=== PATIENT | male | born 1965 | race Caucasian/White ===

== ENCOUNTER 2019-01-04 00:40 | Observation (INO) | payer MEDICAID, OTHER ==
[2019-01-04 01:17] LABS: CHLORIDE,CL 105 mEq/L (98-106); SODIUM,NA 141 mEq/L (136-145)
--- NOTE | 2019-01-04 01:46 | EDM.PDOC ---
ED HPI GENERAL MEDICAL PROBLEM - General Chief Complaint: Neuro Symptoms/Deficits Stated Complaint: left sided weakness Time Seen by Provider: 01/04/19 01:00 Source of Information: Reports: Patient History Limitations: Reports: No Limitations - History of Present Illness INITIAL COMMENTS - FREE TEXT/NARRATIVE: Patient presents to ER after recurring left arm weakness and numbness, concerned with having a stroke. States was sitting in his chair around 2130 and noted left arm numbness, felt like he couldn't move his arm as much. Took a antonette aspirin and within 30 minutes his symptoms went away. Got up and showered and was feeling better. Started having symptoms again around 2300 and after an hour or so, felt like he should call 911. On presentation to ER, nurses note he had shoulder strength but would not make a fist, not able to hold his arm up. Mild left leg weakness when tested. No speech deficit. No facial numbness or tingling. Blood pressure was good. patient states he had similar symptoms of a stroke 4 years ago in his right arm but never went in to be seen. Denies chest pain, shortness of breath. No recent injury. No neck pain or shoulder pain. Able to ambulate at home. Admits to pain in his elbow and down to his hand. History of seizure disorder, denies having any seizure activity recently. Onset: Today, Sudden Duration: Hour(s): Location: Reports: Upper Extremity, Left Associated Symptoms: Reports: Weakness. Denies: Confusion, Chest Pain, Cough, Fever/Chills, Headaches, Loss of Appetite, Nausea/Vomiting, Seizure, Shortness of Breath Treatments RN ORTHOPAEDICS: Reports: Aspirin - Related Data Allergies Allergy/AdvReac Type Severity Reaction Status Date / Time No Known Allergies Allergy Verified 01/04/19 00:58 Home Meds: Home Meds Aspirin [Antonette Chewable] 81 mg PO DAILY 04/04/13 [History] lamoTRIgine [LaMICtal] 200 mg PO DAILY 04/04/13 [History] lamoTRIgine [Lamictal] 150 mg PO BEDTIME 04/04/13 [History] Past Medical History HEENT History: Reports: None Neurological History: Reports: Concussion, Headaches, Chronic, Head Trauma, Migraines, Seizure Psychiatric History: Reports: Depression, Mood Swings - Past Surgical History HEENT Surgical History: Reports: Adenoidectomy, Tonsillectomy GI Surgical History: Reports: Appendectomy Social & Family History - Tobacco Use Smoking Status *Q: Never Smoker - Caffeine Use Caffeine Use: Reports: Coffee, Energy Drinks, Soda, Tea - Recreational Drug Use Recreational Drug Use: No ED ROS GENERAL - Review of Systems Review Of Systems: See Below Constitutional: Reports: Weakness. Denies: Fever, Chills, Malaise, Fatigue, Decreased Appetite HEENT: Denies: Ear Pain, Sinus Problem, Throat Pain, Vertigo, Vision Change Respiratory: Denies: Shortness of Breath, Cough Cardiovascular: Denies: Chest Pain, Edema, Lightheadedness Endocrine: Reports: Fatigue GI/Abdominal: Denies: Abdominal Pain, Nausea, Vomiting : Reports: No Symptoms Musculoskeletal: Reports: Arm Pain. Denies: Neck Pain, Shoulder Pain, Leg Pain Skin: Reports: No Symptoms Neurological: Reports: Numbness, Tingling, Weakness. Denies: Confusion, Dizziness, Headache, Seizure, Syncope, Trouble Speaking, Change in Speech, Gait Disturbance Psychiatric: Reports: No Symptoms ED EXAM, NEURO - Physical Exam Exam: See Below Exam Limited By: No Limitations General Appearance: Alert, WD/WN, No Apparent Distress Ears: Normal External Exam, Normal TMs Nose: Normal Inspection, Normal Mucosa, No Blood Throat/Mouth: Normal Inspection, Normal Oropharynx Head Exam: Normocephalic Neck: Normal Inspection, Supple, Non-Tender Respiratory/Chest: No Respiratory Distress, Lungs Clear, Normal Breath Sounds Cardiovascular: Regular Rate, Rhythm, No Edema GI/Abdominal: Normal Bowel Sounds, Soft, Non-Tender Neurological: Alert, Normal Mood/Affect, CN II-XII Intact, Oriented x 3, Abnormal Finger to Nose, Babinski (present), Other (leg testing shows mild differences in left being mildly weaker than right but moves leg around in bed.) . No: Abnormal Sensation (Alert and oriented. No facial droop. Cranial nerves intact. BAYLEE. Able to flex and extend left arm but with slow purposeful movements. States unable to make a fist. Unable to do perform Seven , point to point discretion. Has strength in his shoulder/upper arm. Lets arm drop with pronator drift testing but not flaccid. ) Extremities: Normal Inspection, No Pedal Edema Skin Exam: Warm, Dry Course - Vital Signs Last Recorded V/S: Last Vital Signs Temp 96.5 F 01/04/19 02:25 Pulse 60 01/04/19 02:25 Resp 16 01/04/19 02:25 BP 102/65 01/04/19 02:25 Pulse Ox 98 01/04/19 02:25 - Orders/Labs/Meds Orders: Active Orders 24 hr Category Date Time Status Patient Status Manage Transfer [TRANSFER] Routine ADT 01/04/19 02:38 Ordered Head wo Cont [CT] Routine Exams 01/04/19 Taken Resuscitation Status Routine Resus Stat 01/04/19 02:39 Ordered Labs: Laboratory Tests 01/04/19 01/04/19 01/04/19 Range/Units 00:57 00:57 00:57 WBC 5.5 (5.0-10.0) 10^3/uL RBC 4.75 (4.50-6.00) 10^6/uL Hgb 14.7 (14.0-18.0) g/dL Hct 42.5 (40.0-54.0) % MCV 89.5 (82.0-94.0) fL MCH 30.9 (27.0-32.0) pg MCHC 34.6 (33.0-38.0) g/dL RDW Coeff of Karyna 12.2 (11.0-15.0) % Plt Count 189 (150-400) 10^3/uL Neut % (Auto) 50.2 (35-85) % Lymph % (Auto) 33.5 (10-55) % Avery % (Auto) 7.3 (0-16) % Eos % (Auto) 8.6 H (0-5) % Baso % (Auto) 0.4 (0-3) % Neut # (Auto) 2.76 (1.80-7.00) 10^3/uL Lymph # (Auto) 1.84 (1.00-4.80) 10^3/uL Avery # (Auto) 0.40 (0.00-0.80) 10^3/uL Eos # (Auto) 0.47 H (0.00-0.45) 10^3/uL Baso # (Auto) 0.02 10^3/uL PT 10.2 (9.7-12.3) SEC INR 0.99 (0.92-1.18) APTT 26.7 (23.2-32.3) SEC Sodium 141 (136-145) mEq/L Potassium 3.8 (3.5-5.0) mEq/L Chloride 105 (98-106) mEq/L Carbon Dioxide 30 (21-32) mmol/L BUN 17 (7-18) mg/dL Creatinine 1.0 (0.7-1.3) mg/dL Est Cr Clr Drug Dosing 93.08 mL/min Estimated GFR (MDRD) > 60 (>=60) mL/min Glucose 97 (75-99) mg/dL Calcium 9.0 (8.4-10.1) mg/dL Lactate Dehydrogenase 149 (100-190) U/L Creatine Kinase 75 (35-232) U/L Troponin I < 0.017 (0.00-0.06) ng/mL Urine Color (YELLOW) Urine Appearance (CLEAR) Urine pH (4.5-8.0) Ur Specific Adams (1.003-1.020) Urine Protein (NEGATIVE) mg/dL Urine Glucose (UA) (NEGATIVE) mg/dL Urine Ketones (NEGATIVE) mg/dL Urine Occult Blood (NEGATIVE) Urine Nitrite (NEGATIVE) Urine Bilirubin (NEGATIVE) Urine Urobilinogen (0.2-1.0) EU/dL Ur Leukocyte Esterase (NEGATIVE) 01/04/19 Range/Units 00:57 WBC (5.0-10.0) 10^3/uL RBC (4.50-6.00) 10^6/uL Hgb (14.0-18.0) g/dL Hct (40.0-54.0) % MCV (82.0-94.0) fL MCH (27.0-32.0) pg MCHC (33.0-38.0) g/dL RDW Coeff of Karyna (11.0-15.0) % Plt Count (150-400) 10^3/uL Neut % (Auto) (35-85) % Lymph % (Auto) (10-55) % Avery % (Auto) (0-16) % Eos % (Auto) (0-5) % Baso % (Auto) (0-3) % Neut # (Auto) (1.80-7.00) 10^3/uL Lymph # (Auto) (1.00-4.80) 10^3/uL Avery # (Auto) (0.00-0.80) 10^3/uL Eos # (Auto) (0.00-0.45) 10^3/uL Baso # (Auto) 10^3/uL PT (9.7-12.3) SEC INR (0.92-1.18) APTT (23.2-32.3) SEC Sodium (136-145) mEq/L Potassium (3.5-5.0) mEq/L Chloride (98-106) mEq/L Carbon Dioxide (21-32) mmol/L BUN (7-18) mg/dL Creatinine (0.7-1.3) mg/dL Est Cr Clr Drug Dosing mL/min Estimated GFR (MDRD) (>=60) mL/min Glucose (75-99) mg/dL Calcium (8.4-10.1) mg/dL Lactate Dehydrogenase (100-190) U/L Creatine Kinase (35-232) U/L Troponin I (0.00-0.06) ng/mL Urine Color Yellow (YELLOW) Urine Appearance Clear (CLEAR) Urine pH 6.0 (4.5-8.0) Ur Specific Adams 1.020 (1.003-1.020) Urine Protein Negative (NEGATIVE) mg/dL Urine Glucose (UA) Negative (NEGATIVE) mg/dL Urine Ketones Negative (NEGATIVE) mg/dL Urine Occult Blood Negative (NEGATIVE) Urine Nitrite Negative (NEGATIVE) Urine Bilirubin Negative (NEGATIVE) Urine Urobilinogen 0.2 (0.2-1.0) EU/dL Ur Leukocyte Esterase Negative (NEGATIVE) - Re-Assessments/Exams Free Text/Narrative Re-Assessment/Exam: 01/04/19 01:30 Now moves arm freely. Asking to not have IV. good point to point discretion, rapid alternating movements. Able to make a fist. Palmar grasp is good. Labs are all normal. Awaiting results of CT. 01/04/19 0200 contacted [facility] to determine read of head CT. Will call when read 01/04/2019 0215-Head CT report received, negative. contacted [facility] and spoke with physician. Recommend neurological monitoring. Patient informed. Likely proceed with MRI of head tomorrow. Departure - Departure Time of Disposition: 02:43 Disposition: Refer to Observation Condition: Good Clinical Impression: Limb weakness - Discharge Information *PRESCRIPTION DRUG MONITORING PROGRAM REVIEWED*: No *COPY OF PRESCRIPTION DRUG MONITORING REPORT IN PATIENT PAULY: No Forms: ED Department Discharge - Problem List & Annotations (1) Limb weakness SNOMED Code(s): 898290099 Code(s): R29.898 - [facility] SYMPTOMS AND SIGNS INVOLVING THE MUSCULOSKELETAL SYSTEM Status: Acute Priority: High - Problem List Review Problem List Initiated/Reviewed/Updated: Yes - My Orders Last 24 Hours: My Active Orders 01/04/19 Head wo Cont [CT] Routine 01/04/19 02:38 Patient Status Manage Transfer [TRANSFER] Routine 01/04/19 02:39 Resuscitation Status Routine - Assessment/Plan Admission H&P: Please use this note as an admission H&P Last 24 Hours: My Active Orders 01/04/19 Head wo Cont [CT] Routine 01/04/19 02:38 Patient Status Manage Transfer [TRANSFER] Routine 01/04/19 02:39 Resuscitation Status Routine Assessment:: Left arm weakness Plan: Admit to observation for neurological monitoring.
[2019-01-04] MEDS ORDERED: Acetaminophen 325 MG Tab PO PRN (03:13)
[2019-01-04] MEDS ORDERED: Ondansetron 4 MG Tab.DIS PO PRN (03:13)
[2019-01-04] MEDS ORDERED: Enoxaparin 40 MG/0.4 ML Syringe SUBCUT SCH (03:30)
[2019-01-04 08:00] LABS: CHLORIDE,CL 106 mEq/L (98-106); SODIUM,NA 142 mEq/L (136-145)
[2019-01-04] MEDS: Aspirin 81 MG Tab.EC PO SCH (10:37)
[2019-01-04] MEDS: lamoTRIgine 100 MG Tab PO SCH (10:38)
[2019-01-04] MEDS ORDERED: lamoTRIgine 100 MG Tab PO SCH (20:00)
[2019-01-05] MEDS ORDERED: Enoxaparin 40 MG/0.4 ML Syringe SUBCUT SCH (08:00)
[2019-01-05] MEDS: Aspirin 81 MG Tab.EC PO SCH (09:01)
[2019-01-05] MEDS: lamoTRIgine 100 MG Tab PO SCH (09:01)
--- NOTE | 2019-01-05 15:24 | PCM.DCSUM1 ---
Discharge Summary - Hospital Course Free Text/Narrative:: Patient presented to ER with complaints of left arm numbness and weakness. Had an event earlier in the evening that lasted about 30 minutes and then resolved. He had recurring symptoms that started 90 minutes prior to coming to the ER. States numbness is noted from elbow to finger tips and left leg feels weak. Unable to make a fist. Denies neck pain. No recent head trauma. Denies chest pain or shortness of breath. Stroke protocol initiated on patient's arrival. Diagnosis: Stroke: No Modified [place] Scale: No Symptoms at All Modified [place] Scale Score: 0 - Discharge Data Discharge Date: 01/05/19 Discharge Disposition: Home, Self-Care 01 Condition: Good - Referral to Home Health Primary Care Physician: Hema Gupta MD - Discharge Diagnosis/Problem(s) (1) Limb weakness SNOMED Code(s): 777631690 ICD Code: R29.898 - [facility] SYMPTOMS AND SIGNS INVOLVING THE MUSCULOSKELETAL SYSTEM Status: Acute Priority: High - Patient Summary/Data Complications: none Hospital Course: Twenty minutes after patient arrival to ER, did have resolution of symptoms. Initial stroke scale 4 for this provider, see work sheet. Now able to move arm and hand without difficulty. He has not had any further symptoms since admission. Does relate he was using his arms lifting on a car and questions if related to this. Denies any neck pain. No weakness. Has been ambulating without difficulty. Cardiac monitoring has been normal. Labs show normal WBC, electrolytes. Troponin has been negative. MRI done this am negative. Discharge home. Continue daily aspirin. Follow up in [place] next week. - Patient Instructions Diet: Usual Diet as Tolerated Activity: As Tolerated - Discharge Plan *PRESCRIPTION DRUG MONITORING PROGRAM REVIEWED*: No *COPY OF PRESCRIPTION DRUG MONITORING REPORT IN PATIENT PAULY: No Home Medications: Home Meds Aspirin [Antonette Chewable Aspirin] 81 mg PO DAILY 04/04/13 [History] lamoTRIgine [Lamictal] 150 mg PO BEDTIME 04/04/13 [History] lamoTRIgine [Lamictal] 200 mg PO DAILY 04/04/13 [History] Forms: ED Department Discharge Referrals: Ann Brown PA [Emergency Provider] - (Follow up with Yesika Brown in one week) - Discharge Summary/Plan Comment DC Time >30 min.: No - General Info Date of Service: 01/05/19 Admission Dx/Problem (Free Text: Limb weakness Functional Status: Reports: Pain Controlled, Tolerating Diet, Ambulating - Review of Systems General: Denies: Fever, Weakness, Fatigue, Malaise HEENT: Reports: No Symptoms Pulmonary: Denies: Shortness of Breath, Cough Cardiovascular: Denies: Chest Pain, Edema, Lightheadedness Gastrointestinal: Denies: Abdominal Pain, Nausea, Vomiting Genitourinary: Reports: No Symptoms Musculoskeletal: Denies: Neck Pain, Shoulder Pain, Arm Pain Skin: Reports: No Symptoms Neurological: Denies: Dizziness, Headache, Numbness, Paresthesia, Tingling, Difficulty Walking, Weakness - Patient Data Vitals - Most Recent: Last Vital Signs Temp 97.9 F 01/05/19 12:00 Pulse 75 01/05/19 12:00 Resp 18 01/05/19 12:00 BP 120/67 01/05/19 12:00 Pulse Ox 98 01/05/19 12:00 Weight - Most Recent: 217 lb 11.2 oz Med Orders - Current: Current Medications Discontinued Medications Acetaminophen (Tylenol) 650 mg PO Q4H PRN PRN Reason: Pain (Mild 1-3)/fever Aspirin (Halfprin) 81 mg PO DAILY [facility] Last Admin: 01/05/19 09:01 Dose: 81 mg Enoxaparin Sodium (Lovenox) 40 mg SUBCUT Q24H [facility] Last Admin: 01/04/19 04:18 Dose: 40 mg Enoxaparin Sodium (Lovenox) 40 mg SUBCUT Q24H [facility] Last Admin: 01/05/19 09:01 Dose: 40 mg Lamotrigine (Lamotrigine) 150 mg PO BEDTIME [facility] Last Admin: 01/04/19 19:37 Dose: 150 mg Lamotrigine (Lamotrigine) 200 mg PO DAILY [facility] Last Admin: 01/05/19 09:01 Dose: 200 mg Ondansetron HCl (Zofran Odt) 4 mg PO Q4H PRN PRN Reason: nausea, able to take PO - Exam General: Reports: Alert, Oriented HEENT: Reports: Mucous Membr. Moist/[place]ck: Reports: Supple Lungs: Reports: Clear to Auscultation, Normal Respiratory Effort Cardiovascular: Reports: Regular Rate, Regular Rhythm GI/Abdominal Exam: Normal Bowel Sounds, Soft, Non-Tender Extremities: Normal Inspection, No Pedal Edema Skin: Reports: Warm, Dry Neurological: Reports: No New Focal Deficit
== END 2019-01-05 13:45 | disposition home or self-care (01) ==
LOC: CC.ED 00:40 → CC.MS 02:39 → UNDOADMOB 02:55
PROVIDERS: ADMIT Physician Assistant Medical; ATTEND Family Medicine
DX: R53.1 Weakness (principal); R20.0 Anesthesia of skin; Z79.82 Long term (current) use of aspirin; Z79.899 Other long term (current) drug therapy
CPT/HCPCS: 36415; 70450; 70551; 80048; 81003; 82550; 83615; 84484; 85025; 85610; 85730; 93005; 99285; A9270; J1650; 96372; G0378

== ENCOUNTER 2024-01-16 13:35 | Emergency (ER) | payer MEDICAID ==
[2024-01-16] MEDS: Lidocaine 1% with EPINEPHrine 1:100,000 10 ML MDV INJECT ONE (13:44)
[2024-01-16] MEDS: Bacitracin Oint 1 GM U/D Packet TOP ONE (13:48)
[2024-01-16] MEDS: Diphtheria/Tetanus Toxoids,Adult (Td) 0.5 ML SDV IM ONE (13:59)
== END 2024-01-16 14:35 | disposition home or self-care (01) ==
LOC: CC.ED 13:35
DX: S51.811A Laceration without foreign body of right forearm, initial encounter (principal); Z23 Encounter for immunization; W22.8XXA Striking against or struck by other objects, initial encounter; Z90.49 Acquired absence of other specified parts of digestive tract
CPT/HCPCS: 12002; 90471; 90714; 99282-25; 99283; J3490